=== PATIENT | female | born 1940 | race Caucasian/White ===

== ENCOUNTER 2021-08-18 15:15 | Day surgery (SDC) | payer MEDICARE ==
[2021-08-18] MEDS ORDERED: Xylocaine 1% Vial 30 ML PF IJ ONE (15:16)
[2021-08-18] MEDS ORDERED: Depo-Medrol 80 MG/ML IM ONE (15:16)
[2021-08-18] MEDS ORDERED: BUPIVACAINE 0.5% VIAL IJ ONE (15:16)
--- NOTE | 2021-08-18 18:29 | XRAY ---
Indication: Bilateral greater trochanter bursa injection. Intraoperative fluoroscopy provided for 32 seconds. 2 digital spot image submitted for interpretation demonstrates needle tip projecting lateral to the left and right greater trochanter. Small amount of contrast injected for both needle tip placement. Correlate with intraoperative findings/report.
--- NOTE | 2021-08-18 19:11 | XRAY ---
32 seconds of fluoroscopy was used in surgery for bilateral hips greater trochanteric bursa injections.
== END 2021-08-18 16:53 | disposition home or self-care (01) ==
LOC: SDC-PAIN 15:15
PROVIDERS: ATTEND Psychiatry & Neurology Pain Medicine
DX: M70.62 Trochanteric bursitis, left hip (principal); M70.61 Trochanteric bursitis, right hip; Z79.899 Other long term (current) drug therapy
CPT/HCPCS: 20610; 73521; 77002; J1040; J2001; Q9966

== ENCOUNTER → 2022-03-23 | Day surgery (SDC) | payer MEDICARE ==
[~2022-03-23] MED LIST: Depo-Medrol 40 MG/ML IM ONE; Sodium Chloride 0.9(Preservative Free) 10 ML IJ ONE; Xylocaine 1% Vial 30 ML PF IJ ONE
--- NOTE | 2022-03-23 18:27 | XRAY ---
Indication: Lumbar IFEANYI. Intraoperative fluoroscopy provided for 22 seconds. 2 digital spot image submitted for interpretation demonstrates midline posterior needle tip projecting just posterior to lumbosacral interspace. Small amount of contrast injected for needle tip placement. Correlate with intraoperative findings/report.
--- NOTE | 2022-03-24 09:19 | XRAY ---
22 seconds fluoroscopy time in surgery for lumbar IFEANYI.
== END ==
LOC: SDC-PAIN 14:31
PROVIDERS: ATTEND Psychiatry & Neurology Pain Medicine
DX: M54.16 Radiculopathy, lumbar region (principal); Z79.899 Other long term (current) drug therapy
CPT/HCPCS: 62323; 72100; 77003; J1030; J2001; Q9966